=== PATIENT | male | born 1980 | race Caucasian/White ===

== ENCOUNTER 2017-12-22 11:44 | Emergency (ER) | payer MEDICAID ==
[~2017-12-22] VITALS: Ht 182.9 cm; Wt 94.0 kg
[~2017-12-22 11:44] MED LIST: TRAM50TA2 PO
[2017-12-22 11:53] VITALS: BP 127/85
[2017-12-22] MEDS ORDERED: LIDOCAINE-MPF 1%, 5ML ONE (12:06)
[2017-12-22] MEDS ORDERED: DIPH,PERTUSS(ACELL),TET VAC/PF 0.5 ML IM-VACC ONE ×2 (12:07→12:30)
[2017-12-22] MEDS ORDERED: LIDOCAINE-MPF 1%, 5ML INFIL ONE (12:30)
== END 2017-12-22 13:03 | disposition home or self-care (01) ==
LOC: ED 12:55
DX: S01.511A Laceration without foreign body of lip, initial encounter (principal); Y04.0XXA Assault by unarmed brawl or fight, initial encounter; Y93.89 Activity, other specified; Y92.89 Other specified places as the place of occurrence of the external cause; Y99.8 Other external cause status
CPT/HCPCS: 12051; 90471; 90715; 99284